=== PATIENT | female | born 1985 | race Hispanic/Latino ===

== ENCOUNTER 2020-06-30 07:43 | Emergency (ER) | payer OTHER, SELFPAY ==
[2020-06-30] VITALS (9 sets, daily range): BP systolic 117–159; BP diastolic 82–110; PULSE 66–81; RESP 11–22; TEMP 36.6; O2SAT 99–100
--- NOTE | ~2020-06-30 | CT_ITS ---
EXAMINATION: CTA chest PE protocol EXAM DATE: 06/30/2020 14:34 INDICATION: Left arm, chest pain. TECHNIQUE: Spiral CTA of the chest (pulmonary arteries) was performed with 100 cc Omnipaque 350 intr avenous contrast injection. Images were acquired during the pulmonary arterial phase. Coronal maxi mum intensity projection 3D-reconstructions were created by the technologist on dedicated workstation . Axial, coronal and sagittal reformatted images were reviewed. The dose-length product (DLP) for t his examination was 381.91 mGy-cm. The exposure was tailored according to patient size (auto mA exp osure control), and iterative reconstruction (ASIR) was used as additional dose reduction technique. There is no prior study for comparison. FINDINGS: There are no pulmonary emboli in the 1st through 3rd order (central and interlobar) pulmon darrion arteries. Some loss of attenuation in the segmental pulmonary arteries due to respiratory motion , but no intraluminal filling defects suspected. No thoracic aortic dissection. The lungs are ed r. There are no pleural or pericardial effusions. Tracheobronchial tree is patent. There is no mediastinal, hilar or axillary lymphadenopathy. There is no pneumothorax. Heart normal in size. No evidence of coronary arterial calcification. There is moderate sliding gastroesophageal hiatal he rnia. There is thoracic spondylosis without osteoblastic or osteolytic lesions identified. IMPRESSION: 1. No pulmonary emboli or acute cardiopulmonary findings. 2. Moderate-sized gastroesophageal hiatal hernia Reviewed, dictated and finalized at location A.
--- NOTE | ~2020-06-30 | XR_ITS ---
EXAMINATION: XR chest 2V EXAM DATE: 06/30/2020 08:21 INDICATION: Mid chest pain, left arm pain. TECHNIQUE: Frontal and lateral projections of the chest obtained and reviewed. There is no prior kervin dy for comparison. FINDINGS: The lungs are clear. There are no pleural effusions. The cardiomediastinal silhouette is within normal limits. There is no pneumothorax suspected. The bones and soft tissues are unremarkab le. IMPRESSION: Normal chest x-ray exam. Reviewed, dictated and finalized at location A. IMPRESSION: Normal chest x-ray exam.
--- NOTE | ~2020-06-30 | US_ITS ---
EXAMINATION: US venous doppler UE EXAM DATE: 06/30/2020 10:52 INDICATION: Left arm pain. TECHNIQUE: Multiple grayscale, color flow, Doppler sonographic images of the left upper extremity vei ns obtained by technologist. Compression was performed where able. There is no prior study for idania raines. FINDINGS: Left upper extremity: Jugular vein: ------------> Normal. Subclavian vein: --------> Normal. Axillary vein:------------> Normal. Brachial vein:-----------> Normal. Basilic vein: ------------> Normal. Cephalic vein: ----------> Normal. Radial vein: ------------> Normal. Ulnar vein: > Normal. IMPRESSION: No deep venous thrombosis of the left upper extremity. Reviewed, dictated and finalized at location A.
--- NOTE | ~2020-06-30 | XR_ITS ---
XR shoulder LT min 2V 06/30/2020 09:35 INDICATION: Left shoulder pain PROCEDURE: 4 views left shoulder COMPARISON: No prior studies for comparison. FINDINGS: Fracture, dislocation or subluxation is not identified. The soft tissues appear within norm al limits. No foreign bodies are identified. IMPRESSION: 1: NO ACUTE BONE OR JOINT ABNORMALITY IDENTIFIED. Reviewed, dictated and finalized at location B.
--- NOTE | 2020-06-30 07:48 | ECG_ITS ---
Measurements Intervals [place] Rate: 77 P: 33 MT: 132 QRS: 65 QRSD: 97 T: 48 QT: 383 QTc: 435 Interpretive Statements SINUS RHYTHM WITH SINUS ARRHYTHMIA BASELINE WANDER- I, II, III, V3-V4 NORMAL ECG Electronically Signed On 06-30-2020 8:27:51 CDT by Kentrell Venegas D.O.
--- NOTE | 2020-06-30 08:07 | PC.NURSE ---
PT DIFFICULT STICK, I ATTEMPTED TWICE, SHANTHI MICHAEL AT BEDSIDE TO ASSIST.
--- NOTE | 2020-06-30 08:18 | PC.NURSE ---
PT TO RADIOLOGY AT THIS TIME, WILL MEDICATE PER PROVIDER ORDER UPON RETURN.
[2020-06-30 08:22] LABS: Basophils Percent Auto 0.2 % (0.2-1.2); Eosinophils Absolute Auto 0.1 K/mm3 (0-0.3); Eosinophils Percent Auto 1.7 % (0-4.4); Hematocrit 35.8 % (37.0-47.0); Immature Granulocyte Absolute 0.02 K/mm3 (0.00-0.031); Immature Granulocyte Percent A 0.2 % (0-0.5); Lymphocytes Absolute Auto 3.12 K/mm3 (0.9-3.2); Mean Corpuscular HGB Conc 33.5 g/dl (32-36); Mean Corpuscular Hemoglobin 27.1 pg (26-34); Monocytes Absolute Auto 0.5 K/mm3 (0.1-0.6); Monocytes Percent Auto 5.9 % (2.6-8.5); Neutrophils Absolute Auto 4.6 K/mm3 (1.3-6.7); Platelet Count Result 161 k/mm3 (150-375); Red Blood Count 4.42 M/mm3 (4.2-5.4); Red Cell Distribution Width 13.8 % (11.5-14.5); White Blood Count 8.4 K/mm3 (4.5-10.0)
[2020-06-30] MEDS: KETOROLAC 30 MG/ML VIAL (*BKC) IV PUSH (08:24)
[2020-06-30 08:34] LABS: Anion Gap 7 mmol/L (8-16); Blood Urea Nitrogen 12 mg/dL (7-17); Carbon Dioxide 25 mmol/L (22-30); Chloride 103 mmol/L (98-107); Estimated CRCL calculation 127 ml/min; Estimated Glomerular Filt Rate > 60; Glucose 92 mg/dL (65-105); Potassium 4.3 mmol/L (3.4-5.0); Sodium 135 mmol/L (137-145)
--- NOTE | 2020-06-30 08:34 | ED.GENADULT ---
HPI - General Adult General Chief complaint: Extremity Injury, Upper Stated complaint: left arm pain Time Seen by Provider: 06/30/20 07:47 History of Present Illness HPI narrative: Patient presents emergency department from home for left arm pain. Patient states symptoms began 2 days ago. Patient states initially 2 days ago she had pain over her left chest with radiation up into her left neck and her left arm. She states that that pain resolved that day but she continues have pain in the left upper arm. She states the pain is worse with movement of the arm and certain positioning of the arm. States she is had no more chest pain since that time. She denies any fevers or chills shortness of breath abdominal pain nausea vomiting any other symptoms denies any numbness or tingling in the extremity Related Data Allergies Allergy/AdvReac Type Severity Reaction Status Date / Time No Known Allergies Allergy Verified 10/31/19 02:00 Review of Systems Review of Systems: Narrative: Gen.: Denies fevers or chills Eyes: Denies eye pain or visual change ENT: Denies congestion Respiratory: Denies shortness of breath or cough CV: Reports chest pain GI: Denies abdominal pain nausea, emesis or diarrhea denies burning, urgency, frequency or hematuria Musculoskeletal: Left arm pain Neuro: Denies numbness, tingling, weakness or focal weakness Skin: Denies rash Except as documented, all other systems reviewed and negative PMF Past Medical History Medical History Migraines Surgical History Surgical History (Updated 10/31/19 @ 02:30 by Perri Garcia) History of hysterectomy Hx of section Social History Social History (Updated 06/30/20 @ 14:56 by Pato Paulino DO) Smoking status: Never smoker Gender identity (if verbalized by the patient): Female Exam Narrative: Exam Narrative: APPEARANCE: No acute distress, nontoxic, resting in bed EYES: EOMI HEENT: Normocephalic, atraumatic, OMM Neck: Supple, no midline tenderness palpation no tenderness of the bilateral paravertebral muscles, pain in the left trapezius muscle with full rotation of the left, tender palpation left trapezius muscle with point tenderness present RESPIRATORY: No respiratory distress Clear to auscultation bilaterally with no rhonchi wheezing or rales. CARDIOVASCULAR: Regular rate and rhythm without murmurs rubs or gallops. ABDOMINAL: Soft, nontender, nondistended, no rebound or guarding MUSCULOSKELETAl: Moves all extremities. No clubbing, cyanosis or edema. Full range of motion of the left shoulder no tenderness of the left shoulder elbow or wrist pain in the left arm arm with flexion abduction greater than 90 degrees, bilateral radial pulse 2+ neurovascular intact NEURO: Awake and alert. Following commands, speech normal, no focal deficits SKIN:: Warm, dry. No rashes lesions or abrasions PSYCHIATRIC: Normal affect/mood, Course Course Emergency Course: Patient states pain is improved with Toradol patient states she drove her self to the emergency department Discussed with patient results of workup and diagnosis. Discussed need for follow-up with primary care, proper use of medication, and reasons to return to the emergency department. Patient understands and agrees to current treatment plan Vital Signs Vital signs: Vital Signs Temperature 97.8 F 06/30/20 07:49 Pulse Rate 74 06/30/20 07:49 Respiratory Rate 11 L 06/30/20 07:49 Pulse Oximetry 100 06/30/20 07:49 Temperature 97.8 F 06/30/20 07:49 Pulse Rate 74 06/30/20 11:09 Respiratory Rate 22 H 06/30/20 11:09 Blood Pressure 159/110 H 06/30/20 09:58 Pulse Oximetry 100 06/30/20 11:09 Medical Decision Making MDM Narrative Medical decision making narrative: Patient's EKGs and labs are without significant high risk changes. Cardiac risk factors reviewed. Patient is felt likely low risk for ACS and reasonable for fur
[2020-06-30 08:37] LABS: Partial Thromboplastin Time 23.2 SECONDS (22.3-36.8); Prothrombin Time 12.6 Seconds (11.1-14.7)
[2020-06-30 08:45] LABS: Troponin I < 0.012 ng/mL (0.000-0.034)
--- NOTE | 2020-06-30 11:10 | PC.NURSE ---
BEDSIDE REPORT TO SHANTHI JIMÉNEZ AT THIS TIME, SHE HAS ASSUMED PT CARE.
[2020-06-30 12:04] LABS: D Dimer 0.39 ug/mL (<0.48)
[2020-06-30 12:20] LABS: Troponin I < 0.012 ng/mL (0.000-0.034)
== END 2020-06-30 15:32 | disposition home or self-care (01) ==
PROVIDERS: Emergency Provider Emergency Medicine
DX: M62.838 Other muscle spasm (principal)
CPT/HCPCS: 36415; 71046; 71275; 73030; 80048; 84484; 85025; 85380; 85610; 85730; 93005; 93971; 96374; 99284; J1885; Q9967